=== PATIENT | female | born 1945 | race Two or more races ===

== ENCOUNTER 2022-05-11 02:08 | Emergency (ER) | payer OTHER ==
[~2022-05-11] VITALS: Ht 160 cm; Wt 66.0 kg
[2022-05-11] MEDS ORDERED: LIDOCAINE VISCOUS 2% 15ML UD MT ONE (02:45)
[2022-05-11] MEDS ORDERED: ONDANSETRON ODT 4 MG TAB PO ONE (02:45)
[2022-05-11] MEDS ORDERED: ALUM & MAG HYDROX-SIMETH LIQ(MAALOX) 30 ML PO ONE (02:45)
[2022-05-11] MEDS ORDERED: DONNATAL 5ml ORAL Elix (BELLADONNA ALK-PHENOBARB) PO ONE (02:45)
[2022-05-11 03:29] LABS: Eosinophils # (auto) 0.1 10 ^3/uL (0-0.8); Eosinophils % (auto) 0.5 % (0.0-7.0); Hemoglobin 11.7 g/dL (12.2-16.2); Monocytes # (auto) 0.9 10 ^3/uL (0-1.3); Monocytes % (auto) 7.8 % (0.0-12.0)
[2022-05-11 03:30] LABS: Basophils # (auto) 0 10 ^3/uL (0-0.2); Basophils % (auto) 0.4 % (0.0-2.0); Hematocrit 36.2 % (36.0-46.0); Lymphocytes % (auto) 8.3 % (10.0-50.0); Mean Corpuscular Hemoglobin 27.2 pg (28.0-32.0); Mean Corpuscular Hgb Conc. 32.4 g/dL (32.0-36.0); Mean Corpuscular Volume 83.9 fL (80.0-100.0); Neutrophils # (auto) 9.8 10 ^3/uL (1.6-8.6); Nucleated Red Blood Cells % 0.1 %; Red Blood Cells 4.31 10^6/uL (4.0-5.20); Red Cell Distribution Width 13.4 % (11.8-14.3); White Blood Cell 11.8 10^3/uL (4.4-10.8)
[2022-05-11 03:57] LABS: Albumin 3.8 g/dL (3.4-5.0); Calcium 9.2 mg/dL (8.5-10.1); Potassium 4.3 mmol/L (3.5-5.1)
[2022-05-11 04:00] LABS: BUN/Creatinine Ratio 25.7; Bilirubin, Total 0.2 mg/dL (0.2-1.0); Total Protein 7.8 g/dL (6.4-8.2)
[2022-05-11 07:23] VITALS: BP 152/75
[2022-05-11] MEDS ORDERED: PANT40TA2 PO (07:32)
[2022-05-11] MEDS ORDERED: CEPH-509 PO (07:33)
[2022-05-11] MEDS ORDERED: METR500T PO (07:34)
== END 2022-05-11 08:13 | disposition home or self-care (01) ==
LOC: ER 02:08
DX: K29.70 Gastritis, unspecified, without bleeding (principal); I10 Essential (primary) hypertension; E11.9 Type 2 diabetes mellitus without complications; J45.909 Unspecified asthma, uncomplicated; Z79.899 Other long term (current) drug therapy
CPT/HCPCS: 36415; 71046; 74176; 80053; 84484; 85025; 93005; 99285; Q0162

== ENCOUNTER 2022-10-06 12:00 | Emergency (ER) | payer OTHER ==
[~2022-10-06] VITALS: Ht 157.5 cm; Wt 62.0 kg
[~2022-10-06 12:00] MED LIST: CEPH-509 PO; METR500T PO; PANT40TA2 PO
[2022-10-06 17:16] VITALS: BP 164/72
== END 2022-10-06 17:18 | disposition home or self-care (01) ==
LOC: ER 12:00
DX: F07.81 Postconcussional syndrome (principal); J45.909 Unspecified asthma, uncomplicated; E11.9 Type 2 diabetes mellitus without complications; I10 Essential (primary) hypertension; Z98.890 Other specified postprocedural states; Z90.49 Acquired absence of other specified parts of digestive tract; W19.XXXA Unspecified fall, initial encounter; Y93.89 Activity, other specified; Y92.510 Bank as the place of occurrence of the external cause; Y99.8 Other external cause status
CPT/HCPCS: 70450; 72125

== ENCOUNTER 2023-08-15 19:10 | Emergency (ER) | payer OTHER, MEDICAID ==
[~2023-08-15] VITALS: Ht 154.9 cm; Wt 69.6 kg
[2023-08-15 20:19] LABS: Basophils # (auto) 0 10 ^3/uL (0-0.2); Basophils % (auto) 0.5 % (0.0-2.0); Eosinophils # (auto) 0.1 10 ^3/uL (0-0.8); Eosinophils % (auto) 1.1 % (0.0-7.0); Hemoglobin 12.8 g/dL (12.2-16.2); Lymphocytes # (auto) 1.4 10 ^3/uL (0.4-5.4); Lymphocytes % (auto) 16.7 % (10.0-50.0); Mean Corpuscular Hemoglobin 27.8 pg (28.0-32.0); Mean Corpuscular Hgb Conc. 31.9 g/dL (32.0-36.0); Mean Corpuscular Volume 87.4 fL (80.0-100.0); Monocytes % (auto) 12.2 % (0.0-12.0); Neutrophils # (auto) 5.7 10 ^3/uL (1.6-8.6); Neutrophils % (auto) 69.5 % (37.0-80.0); Nucleated Red Blood Cells % 0.1 %; Red Blood Cells 4.58 10^6/uL (4.0-5.20); Red Cell Distribution Width 13.6 % (11.8-14.3); White Blood Cell 8.2 10^3/uL (4.4-10.8)
[2023-08-15 20:44] LABS: Alanine Aminotransferase 19 U/L (7-40); Albumin 4.6 g/dL (3.2-4.8); Alkaline Phosphatase 57 U/L (46-116); Anion Gap 4 (5-15); Aspartate Aminotransferase 18 U/L (13-40); BUN/Creatinine Ratio 13.5 (10.0-20.0); Blood Urea Nitrogen 13 mg/dL (9-23); Calcium 10.1 mg/dL (8.7-10.4); Carbon Dioxide 32 mmol/L (20-30); Chloride 99 mmol/L (98-107); Glucose 218 mg/dL (74-106); Lipase 46 U/L (12-53); Potassium 4.4 mmol/L (3.5-5.1); Sodium 135 mmol/L (136-145)
[2023-08-15 20:45] LABS: Bilirubin, Total 0.3 mg/dL (0.2-1.0); Total Protein 7.8 g/dL (5.7-8.2)
[2023-08-15 21:25] LABS: Urine Bacteria NONE SEEN /hpf (None Seen); Urine Blood Negative /uL (Negative); Urine Clarity Clear (Clear); Urine Color Colorless (Yellow); Urine Protein, UAD Negative (Negative); Urine Specific Gravity 1.006 (1.001-1.035); Urine Urobilinogen Normal (Negative); Urine WBC <1 /hpf (0 - 5); Urine pH 5.5 (5.0-8.0)
[2023-08-15 21:27] VITALS: BP 159/69; PULSE 88; RESP 20; TEMP 98.3; O2SAT 96
== END 2023-08-15 21:53 | disposition home or self-care (01) ==
LOC: ER 19:10
DX: K80.20 Calculus of gallbladder without cholecystitis without obstruction (principal); J45.909 Unspecified asthma, uncomplicated; E11.9 Type 2 diabetes mellitus without complications; I10 Essential (primary) hypertension; E03.9 Hypothyroidism, unspecified; Z90.49 Acquired absence of other specified parts of digestive tract; Z90.710 Acquired absence of both cervix and uterus; Z79.899 Other long term (current) drug therapy
CPT/HCPCS: 36415; 76705; 80053; 81001; 83690; 85025; 93005

== ENCOUNTER 2023-10-26 14:43 | Inpatient (IN) | payer MEDICAID ==
[~2023-10-26] VITALS: Ht 154.9 cm; Wt 66.6 kg
[2023-10-26 15:18] LABS: Basophils # (auto) 0.1 10 ^3/uL (0-0.2); Basophils % (auto) 0.6 % (0.0-2.0); Eosinophils # (auto) 0.1 10 ^3/uL (0-0.8); Eosinophils % (auto) 0.8 % (0.0-7.0); Hematocrit 40.1 % (36.0-46.0); Hemoglobin 12.9 g/dL (12.2-16.2); Lymphocytes # (auto) 1.6 10 ^3/uL (0.4-5.4); Lymphocytes % (auto) 17.3 % (10.0-50.0); Mean Corpuscular Hemoglobin 28.1 pg (28.0-32.0); Mean Corpuscular Hgb Conc. 32.2 g/dL (32.0-36.0); Mean Corpuscular Volume 87.4 fL (80.0-100.0); Monocytes # (auto) 1.2 10 ^3/uL (0-1.3); Monocytes % (auto) 12.8 % (0.0-12.0); Neutrophils # (auto) 6.2 10 ^3/uL (1.6-8.6); Neutrophils % (auto) 68.5 % (37.0-80.0); Red Blood Cells 4.59 10^6/uL (4.0-5.20); Red Cell Distribution Width 13.2 % (11.8-14.3)
[2023-10-26] MEDS ORDERED: PANTOPRAZOLE 40 MG TAB PO ONE (15:30)
[2023-10-26] MEDS ORDERED: NITROGLYCERIN 0.4 MG SL TAB SL ONE (15:30)
[2023-10-26] MEDS ORDERED: MAALOX PLUS or MAALOX 30 ML PO ONE (15:30)
[2023-10-26 15:38] LABS: Alanine Aminotransferase 21 U/L (7-40); Albumin 4.6 g/dL (3.2-4.8); Alkaline Phosphatase 59 U/L (46-116); Anion Gap 6 (5-15); Aspartate Aminotransferase 19 U/L (13-40); Bilirubin, Total 0.2 mg/dL (0.2-1.0); Blood Urea Nitrogen 19 mg/dL (9-23); Carbon Dioxide 30 mmol/L (20-30); Chloride 103 mmol/L (98-107); Glucose 131 mg/dL (74-106); Potassium 4.4 mmol/L (3.5-5.1); Sodium 139 mmol/L (136-145)
[2023-10-26 15:39] LABS: Total Protein 7.4 g/dL (5.7-8.2)
[2023-10-26] MEDS ORDERED: ONDANSETRON HCL 4 MG/2 ML VIAL IV PRN (17:15)
[2023-10-26] MEDS ORDERED: NITROGLYCERIN 0.4 MG SL TAB SL PRN (17:15)
[2023-10-26] MEDS ORDERED: DOCUSATE SOD 100 MG CAP PO PRN (17:15)
[2023-10-26] MEDS ORDERED: ACETAMINOPHEN 325 MG TAB PO PRN (17:15)
[2023-10-26] MEDS ORDERED: MORPHINE SULFATE INJ 2 MG/ml SYRG IV PRN (17:15)
[2023-10-26] MEDS ORDERED: BACL5TAB2 PO (17:43)
[2023-10-26] MEDS ORDERED: OMEP1CAP70 PO (17:43)
[2023-10-26] MEDS ORDERED: SIMV5TAB14 PO (17:43)
[2023-10-26] MEDS ORDERED: GAB100C PO (17:43)
[2023-10-26] MEDS ORDERED: AMLO1TAB22 PO (17:43)
[2023-10-26] MEDS ORDERED: SODI650T PO (17:43)
[2023-10-26] MEDS ORDERED: ASPI1CHW5 PO (17:43)
[2023-10-26] MEDS ORDERED: LOSA50TA46 PO (17:43)
[2023-10-26] MEDS ORDERED: LEVO75TA6 PO (17:43)
[2023-10-26] MEDS ORDERED: MIRA50TA PO (17:43)
[2023-10-26] MEDS ORDERED: BACLOFEN 10 MG TAB PO PRN (17:45)
[2023-10-26] MEDS ORDERED: GABAPENTIN 100 MG CAP PO PRN (17:45)
[2023-10-26] MEDS ORDERED: IPRATROPIUM BROM 0.5 MG/2.5ML INH SOL NEB PRN (18:00)
[2023-10-26] MEDS ORDERED: DEXTROSE (50%) 50ML SYRG IV PRN (18:00)
[2023-10-26] MEDS ORDERED: ALBUTEROL SULF 2.5 MG/0.5ML(0.5%) NEB SOLN NEB PRN (18:00)
[2023-10-26 18:20] LABS: Urine Bacteria FEW /hpf (None Seen); Urine Blood Negative /uL (Negative); Urine Clarity Clear (Clear); Urine Color Colorless (Yellow); Urine Protein, UAD Negative (Negative); Urine Specific Gravity 1.008 (1.001-1.035); Urine Urobilinogen Normal (Negative); Urine WBC 2 /hpf (0 - 5); Urine pH 5.5 (5.0-8.0)
[2023-10-26 19:38] VITALS: BP 149/72; PULSE 79; RESP 16; TEMP 98.1; O2SAT 96
[2023-10-26] MEDS ORDERED: ATORVASTATIN 20 MG TAB PO SCH (22:00)
[2023-10-27] VITALS (9 sets, daily range): BP systolic 137–157; BP diastolic 59–70; PULSE 76–93; RESP 17–22; TEMP 98–98.9; O2SAT 94–99
[2023-10-27] MEDS: ACCU-CHEK COMFORT CURVE STRIP VI SCH ×4 (00:12→18:07)
[2023-10-27] MEDS: InsuLIN REG 1unit/0.01ml Soln (100units/ml) SC SCH ×4 (00:12→18:05)
[2023-10-27] MEDS: HYDROcodone-ACET 5/325MG TAB PO PRN ×2 (00:26→10:32)
[2023-10-27] MEDS ORDERED: ALBU2TAB11 IN (04:21)
[2023-10-27] MEDS ORDERED: PNEUMOCOCCAL VACC POLYS 25 MCG/0.5 ML VIAL IM ONE (05:15)
[2023-10-27 06:24] LABS: Basophils # (auto) 0.1 10 ^3/uL (0-0.2); Basophils % (auto) 0.8 % (0.0-2.0); Eosinophils # (auto) 0.1 10 ^3/uL (0-0.8); Eosinophils % (auto) 0.9 % (0.0-7.0); Hematocrit 40.2 % (36.0-46.0); Lymphocytes # (auto) 1.6 10 ^3/uL (0.4-5.4); Lymphocytes % (auto) 19.2 % (10.0-50.0); Mean Corpuscular Hemoglobin 28.1 pg (28.0-32.0); Mean Corpuscular Hgb Conc. 32.3 g/dL (32.0-36.0); Mean Corpuscular Volume 87.2 fL (80.0-100.0); Monocytes # (auto) 1.1 10 ^3/uL (0-1.3); Monocytes % (auto) 13.3 % (0.0-12.0); Neutrophils # (auto) 5.6 10 ^3/uL (1.6-8.6); Neutrophils % (auto) 65.8 % (37.0-80.0); Red Blood Cells 4.62 10^6/uL (4.0-5.20); Red Cell Distribution Width 13.1 % (11.8-14.3); White Blood Cell 8.6 10^3/uL (4.4-10.8)
[2023-10-27 06:40] LABS: Alanine Aminotransferase 19 U/L (7-40); Albumin 4.5 g/dL (3.2-4.8); Alkaline Phosphatase 57 U/L (46-116); Anion Gap 6 (5-15); Aspartate Aminotransferase 19 U/L (13-40); BUN/Creatinine Ratio 14.3 (10.0-20.0); Blood Urea Nitrogen 12 mg/dL (9-23); Carbon Dioxide 30 mmol/L (20-30); Chloride 102 mmol/L (98-107); Glucose 101 mg/dL (74-106); Potassium 4.5 mmol/L (3.5-5.1); Sodium 138 mmol/L (136-145)
[2023-10-27 06:41] LABS: Bilirubin, Total 0.4 mg/dL (0.2-1.0); Total Protein 7.6 g/dL (5.7-8.2)
[2023-10-27] MEDS ORDERED: LEVOTHYROXINE SODIUM 50 MCG TAB PO SCH (07:00)
[2023-10-27 09:26] LABS: INR 1.07 (0.9-1.15); Prothrombin Time 11.2 sec (9.3-11.8)
[2023-10-27] MEDS ORDERED: SODIUM BICARBONATE 650 MG TAB PO SCH (10:00)
[2023-10-27] MEDS ORDERED: MIRABEGRON BASE PO SCH (10:00)
[2023-10-27] MEDS ORDERED: ASPirin 81 mg TAB PO SCH (10:00)
[2023-10-27] MEDS ORDERED: PANTOPRAZOLE 40 MG TAB PO SCH (10:00)
[2023-10-27] MEDS ORDERED: amLODIPine BESYLATE 5 MG TAB PO SCH (10:00)
[2023-10-27] MEDS ORDERED: LOSARTAN POTASSIUM 50 MG TAB PO SCH (10:00)
[2023-10-27] MEDS ORDERED: SUCR1TAB PO (14:17)
[2023-10-27] MEDS ORDERED: PANT40T PO (14:17)
[2023-10-27] MEDS ORDERED: TRAM50TA2 PO (14:17)
[2023-10-27] MEDS ORDERED: ACET-1882 PO (14:17)
[2023-10-27] MEDS ORDERED: ERGO1CAP23 PO (14:17)
[2023-10-27] MEDS ORDERED: LIDO5DIS21 TOP (14:19)
[2023-10-27] MEDS ORDERED: cefTRIAXone 1GM/50ML D5W 50 ML IV ONE (14:30)
[2023-10-28] MEDS ORDERED: LEVOTHYROXINE SODIUM 25 MCG TAB PO SCH (07:00)
== END 2023-10-27 20:00 | disposition home or self-care (01) | DRG 206 ==
LOC: ER 14:43 → TELE 17:43 → TELE-EAST 10-27 03:45
PROVIDERS: ADMIT Internal Medicine; ATTEND Internal Medicine
PROC: 3E0234Z Introduction of Serum, Toxoid and Vaccine into Muscle, Percutaneous Approach (ICD-10-PCS; principal; 2023-10-26)
DX: M94.0 Chondrocostal junction syndrome [Tietze] (principal); J98.11 Atelectasis; N39.0 Urinary tract infection, site not specified; K21.9 Gastro-esophageal reflux disease without esophagitis; I10 Essential (primary) hypertension; E11.65 Type 2 diabetes mellitus with hyperglycemia; E78.5 Hyperlipidemia, unspecified; E03.9 Hypothyroidism, unspecified; J45.909 Unspecified asthma, uncomplicated; E55.9 Vitamin D deficiency, unspecified; M19.012 Primary osteoarthritis, left shoulder; M54.9 Dorsalgia, unspecified; Z90.710 Acquired absence of both cervix and uterus
CPT/HCPCS: 36415; 71045; 71250; 80053; 81001; 82306; 82607; 82962; 83036; 84443; 84484; 85025; 85610; 93005; G0378; J1815

== ENCOUNTER → 2023-12-07 | Outpatient (CLI) | payer MEDICAID ==
[~2023-12-07] MED LIST changes: +ACET-1882 PO; +ALBU2TAB11 IN; +ASPI1CHW5 PO; +BACL5TAB2 PO; -CEPH-509 PO; +ERGO1CAP23 PO; +GAB100C PO; +LEVO75TA6 PO; +LIDO5DIS21 TOP; +LOSA50TA46 PO; -METR500T PO; +MIRA50TA PO; +PANT40T PO; -PANT40TA2 PO; +SIMV5TAB14 PO; +SODI650T PO; +SUCR1TAB PO; +TRAM50TA2 PO
[2023-12-07 10:55] LABS: Urine Bacteria NONE SEEN /hpf (None Seen); Urine Blood Negative /uL (Negative); Urine Clarity Clear (Clear); Urine Color Yellow (Yellow); Urine Protein, UAD Negative (Negative); Urine Specific Gravity 1.018 (1.001-1.035); Urine Urobilinogen Normal (Negative); Urine WBC <1 /hpf (0 - 5)
== END | disposition home or self-care (01) ==
LOC: LAB 10:12
DX: N39.0 Urinary tract infection, site not specified (principal)
CPT/HCPCS: 81001; 87086

== ENCOUNTER → 2024-04-12 | Outpatient (CLI) | payer MEDICAID ==
[~2024-04-12] MED LIST changes: +ACET-1080 PO; +LOSA-534 PO; -LOSA50TA46 PO; +METH-1181 PO
[2024-04-12 09:32] LABS: Urine Bacteria None Seen /hpf (None Seen)
[2024-04-12 09:39] LABS: Basophils # (auto) 0.1 10 ^3/uL (0-0.2); Basophils % (auto) 1.3 % (0.0-2.0); Eosinophils # (auto) 0.2 10 ^3/uL (0-0.8); Eosinophils % (auto) 2.2 % (0.0-7.0); Hematocrit 40.5 % (36.0-46.0); Hemoglobin 13.2 g/dL (12.2-16.2); Lymphocytes # (auto) 1.8 10 ^3/uL (0.4-5.4); Lymphocytes % (auto) 25.8 % (10.0-50.0); Mean Corpuscular Hgb Conc. 32.5 g/dL (32.0-36.0); Mean Corpuscular Volume 86.2 fL (80.0-100.0); Monocytes # (auto) 0.8 10 ^3/uL (0-1.3); Monocytes % (auto) 11.6 % (0.0-12.0); Neutrophils # (auto) 4.1 10 ^3/uL (1.6-8.6); Neutrophils % (auto) 59.1 % (37.0-80.0); Nucleated Red Blood Cells % 0.1 %; Red Cell Distribution Width 13.4 % (11.8-14.3); White Blood Cell 6.9 10^3/uL (4.4-10.8)
[2024-04-12 09:40] LABS: Urine Blood Negative /uL (Negative); Urine Budding Yeast OCCASIONAL /hpf (None Seen); Urine Clarity Clear (Clear); Urine Color Colorless (Yellow); Urine Protein, UAD Negative (Negative); Urine Specific Gravity 1.005 (1.001-1.035); Urine Urobilinogen Normal (Negative); Urine WBC <1 /hpf (0 - 5); Urine pH 6.5 (5.0-9.0)
[2024-04-12 10:32] LABS: Alanine Aminotransferase 13 U/L (7-40); Albumin 4.6 g/dL (3.2-4.8); Alkaline Phosphatase 65 U/L (46-116); Anion Gap 5 (5-15); Aspartate Aminotransferase 11 U/L (13-40); BUN/Creatinine Ratio 27.2 (10.0-20.0); Bilirubin, Total 0.3 mg/dL (0.2-1.0); Blood Urea Nitrogen 22 mg/dL (9-23); Calcium 10.2 mg/dL (8.5-10.1); Carbon Dioxide 28 mmol/L (20-30); Chloride 103 mmol/L (98-107); Cholesterol 171 mg/dL (< 200); Glucose 110 mg/dL (74-106); HDL Cholesterol 80 mg/dL (40-59); LDL Cholesterol 86 mg/dL (< 100); Potassium 4.4 mmol/L (3.5-5.1); Sodium 136 mmol/L (136-145); Total Protein 7.7 g/dL (5.7-8.2); Triglycerides 63 mg/dL (< 150)
[2024-04-12 10:40] LABS: % Iron Saturation 29.2 % (15-50)
[2024-04-12 11:45] LABS: Ferritin 17.7 ng/mL (10-291)
[2024-04-12 11:46] LABS: Free T4 (Free Thyroxine) 1.47 ng/dL (0.89-1.76)
[2024-04-12 12:00] LABS: Folate (Folic Acid) 24.26 ng/mL (>5.38)
== END | disposition home or self-care (01) ==
LOC: LAB 08:59
DX: G61.81 Chronic inflammatory demyelinating polyneuritis (principal); E11.40 Type 2 diabetes mellitus with diabetic neuropathy, unspecified; E78.5 Hyperlipidemia, unspecified; E55.9 Vitamin D deficiency, unspecified; E03.9 Hypothyroidism, unspecified
CPT/HCPCS: 36415; 80053; 80061; 81001; 82607; 82728; 82746; 83036; 83540; 83550; 84155; 84165; 84439; 84443; 85025

== ENCOUNTER → 2024-04-18 | Outpatient (CLI) | payer MEDICAID | END | disposition home or self-care (01) | LOC: LAB 12:03 | DX: I10 Essential (primary) hypertension (principal); E11.40 Type 2 diabetes mellitus with diabetic neuropathy, unspecified; E78.5 Hyperlipidemia, unspecified; E55.9 Vitamin D deficiency, unspecified; E03.9 Hypothyroidism, unspecified | CPT/HCPCS: 82274 ==

== ENCOUNTER → 2024-07-04 | Outpatient (CLI) | payer MEDICAID ==
[2024-07-04 09:20] LABS: Urine Bacteria None Seen /hpf (None Seen)
[2024-07-04 09:32] LABS: Basophils # (auto) 0.1 10 ^3/uL (0-0.2); Basophils % (auto) 0.9 % (0.0-2.0); Eosinophils # (auto) 0.1 10 ^3/uL (0-0.8); Eosinophils % (auto) 0.8 % (0.0-7.0); Hematocrit 40.5 % (36.0-46.0); Hemoglobin 13.5 g/dL (12.2-16.2); Lymphocytes # (auto) 1.4 10 ^3/uL (0.4-5.4); Mean Corpuscular Hemoglobin 29.2 pg (28.0-32.0); Mean Corpuscular Hgb Conc. 33.4 g/dL (32.0-36.0); Mean Corpuscular Volume 87.2 fL (80.0-100.0); Monocytes # (auto) 0.8 10 ^3/uL (0-1.3); Monocytes % (auto) 9.5 % (0.0-12.0); Neutrophils # (auto) 5.7 10 ^3/uL (1.6-8.6); Neutrophils % (auto) 71.8 % (37.0-80.0); Platelet Count (auto) 266 10^3/uL (140-450); Red Blood Cells 4.64 10^6/uL (4.0-5.20); Red Cell Distribution Width 13.4 % (11.8-14.3)
[2024-07-04 09:49] LABS: Urine Blood Negative /uL (Negative); Urine Clarity Clear (Clear); Urine Color Light-Yellow (Yellow); Urine Protein, UAD Negative (Negative); Urine Specific Gravity 1.012 (1.001-1.035); Urine Urobilinogen Normal (Negative); Urine WBC 1 /hpf (0 - 5); Urine pH 6.5 (5.0-9.0)
[2024-07-04 10:40] LABS: Alanine Aminotransferase 17 U/L (7-40); Albumin 4.8 g/dL (3.2-4.8); Alkaline Phosphatase 66 U/L (46-116); Anion Gap 5 (5-15); Aspartate Aminotransferase 13 U/L (13-40); BUN/Creatinine Ratio 15.4 (10.0-20.0); Bilirubin, Total 0.4 mg/dL (0.2-1.0); Blood Urea Nitrogen 14 mg/dL (9-23); Calcium 10.4 mg/dL (8.7-10.4); Carbon Dioxide 28 mmol/L (20-30); Chloride 105 mmol/L (98-107); Glucose 165 mg/dL (74-106); Potassium 5.2 mmol/L (3.5-5.1); Sodium 138 mmol/L (136-145); Total Protein 7.9 g/dL (5.7-8.2)
[2024-07-04 13:05] LABS: Triglycerides 99 mg/dL (< 150)
[2024-07-04 13:06] LABS: Cholesterol 165 mg/dL (< 200); LDL Cholesterol 75 mg/dL (< 100)
[2024-07-04 13:07] LABS: HDL Cholesterol 73 mg/dL (40-59)
[2024-07-04 13:08] LABS: Creatinine, Urine 55.56 mg/dL (30.0-125.0)
[2024-07-04 13:11] LABS: Micro Albumin < 3.0 mg/L (<30.0)
[2024-07-04 13:14] LABS: Microalb/Creat Ratio, Urine < 5.00
== END | disposition home or self-care (01) ==
LOC: LAB 09:06
DX: I10 Essential (primary) hypertension (principal); E11.42 Type 2 diabetes mellitus with diabetic polyneuropathy; E78.5 Hyperlipidemia, unspecified; E03.9 Hypothyroidism, unspecified; N39.0 Urinary tract infection, site not specified
CPT/HCPCS: 36415; 80053; 80061; 81001; 82043; 82306; 82570; 83036; 84439; 84443; 85025; 87086

== ENCOUNTER → 2024-08-28 | Outpatient (CLI) | payer MEDICAID ==
[2024-08-28] MEDS: REGADENOSON 0.4 MG/5 ML SYRG IV ONE ×2 (10:30→11:37)
--- NOTE | 2024-08-28 15:41 | DVHSR ---
APPROVED REPORT Exam: Nuclear Stress Test Indication: CARDIAC CLEARANCE Stress Tech: Ramandeep Segundo Ht: 5 ft 1 in Wt: 148 lbs BSA: 1.66 m2 BMI: 27.96 Medical History Medical History: Diabetes, HTN, Hyperlipidemia, SOB, ATYPICAL CHEST PAIN, HYPOTHYROIDISM Allergies: No known drug allergies Stress Test Details Stress Test: Pharmacologic stress testing performed using 0.4 mg of regadenoson per 5 mL given IV ov er 10 seconds. Reason for pharmacologic stress test: CARDIAC CLEARANCE. HR Resting HR: 78 bpmMax Heart Rate (APMHR): 142.304489 bpm Max HR Achieved: 106 bpmTarget HR (85% APMHR): 120.087044 bpm % of APMHR: 74.65 Recovery HR: 89 bpm BP Resting BP: 147/69 mmHg Recovery BP: 146/78 mmHg ECG Resting ECG: Sinus Rhythm Clinical Reason for Termination: Completed protocol Nurse Comments Received patient from Nuclear Medicine. Patient is A&O x4 and on RA. FOR VS please refer back to st ress test assessment documentation. Patient is connected to sealing machine operator. See cardio-neuro proce dural notes for addtional details. PIV flushes well. Reviewed POC and patient verbalizes understand ing and consents to test. Lexiscan stress test performed per protocol. thermoplastic technician administered the Cardiolite. Pat ient tolerated well and vitals returned to baseline. Transferred to Nuclear Medicine via wheelchair with tech in stable condition. Stress ECG Conclusion Resting ECG showed normal sinus rhythm. At peak stress level no dynamic EKG changes was noted to sug gest ischemia. Resting images shows near homogeneous uptake of radioactive tracer throughout the myocardium without evidence of myocardial infarction. Stress images shows near homogeneous uptake of radioactive tracer throughout the myocardium without e vidence of myocardial ischemia. Well-preserved ventricular systolic function at 72%. Impression: Negative stress test for ischemia, low risk study. NM EXAM: Myocardial Perfusion REST/STRESS Imaging Protocol: Rest Tc-99m/Stress Tc-99m 1 day Resting Data Rest SPECT myocardial perfusion imaging was performed in supine position minutes following the intra venous injection of 11.4 mCi of Tc-99m Sestamibi. Time of rest injection: 1000 Time of rest imagin Administration Route: IV Administration Site: Left AC Pharmacologic Stress Pharmacologic stress test was performed by injecting Regadenoson 0.4 mg IV push followed by the intra venous injection of 27 mCi of Tc-99m Sestamibi. Time of stress injection: 1130 Time of stress imagin Administration Route: IV Administration Site: Left AC Gated Stress SPECT was performed 60 minutes after stress injection. The images were gated to evaluate regional wall motion and calculate left ventricular ejection fracti on. Stress only was performed in the Supine position. Nuclear Conclusion ECG Findings: negative for ischemia Clinical Findings: negative for ischemia Nuclear Findings: negative for ischemia Exercise Capacity: not assessed Left Ventricular Function: normal Risk Study: low Resting ECG showed normal sinus rhythm. At peak stress level no dynamic EKG changes was noted to sug gest ischemia. Resting images shows near homogeneous uptake of radioactive tracer throughout the myocardium without evidence of myocardial infarction. Stress images shows near homogeneous uptake of radioactive tracer throughout the myocardium without e vidence of myocardial ischemia. Well-preserved ventricular systolic function at 72%. Impression: Negative stress test for ischemia, low risk study.
== END | disposition home or self-care (01) ==
LOC: XYW 09:56
PROVIDERS: ATTEND Internal Medicine
DX: Z01.810 Encounter for preprocedural cardiovascular examination (principal); E11.9 Type 2 diabetes mellitus without complications; I10 Essential (primary) hypertension; E03.9 Hypothyroidism, unspecified; E78.5 Hyperlipidemia, unspecified
CPT/HCPCS: 78452; A9500; J2785; 93017

== ENCOUNTER → 2024-09-21 | Outpatient (CLI) | payer MEDICAID ==
[2024-09-21 10:30] LABS: Basophils # (auto) 0.1 10 ^3/uL (0-0.2); Basophils % (auto) 1.2 % (0.0-2.0); Eosinophils # (auto) 0.1 10 ^3/uL (0-0.8); Eosinophils % (auto) 1.4 % (0.0-7.0); Hematocrit 36.3 % (36.0-46.0); Hemoglobin 11.8 g/dL (12.2-16.2); Lymphocytes # (auto) 1.5 10 ^3/uL (0.4-5.4); Lymphocytes % (auto) 26.5 % (10.0-50.0); Mean Corpuscular Hemoglobin 28.3 pg (28.0-32.0); Mean Corpuscular Hgb Conc. 32.5 g/dL (32.0-36.0); Mean Corpuscular Volume 86.8 fL (80.0-100.0); Monocytes # (auto) 0.7 10 ^3/uL (0-1.3); Monocytes % (auto) 12.1 % (0.0-12.0); Neutrophils # (auto) 3.3 10 ^3/uL (1.6-8.6); Neutrophils % (auto) 58.8 % (37.0-80.0); Platelet Count (auto) 252 10^3/uL (140-450); Red Blood Cells 4.18 10^6/uL (4.0-5.20); Red Cell Distribution Width 13.3 % (11.8-14.3); White Blood Cell 5.6 10^3/uL (4.4-10.8)
[2024-09-21 10:35] LABS: Urine Bacteria None Seen /hpf (None Seen)
[2024-09-21 11:02] LABS: Urine Blood Negative /uL (Negative); Urine Clarity Clear (Clear); Urine Color Light-Yellow (Yellow); Urine Protein, UAD Negative (Negative); Urine Specific Gravity 1.014 (1.001-1.035); Urine Urobilinogen Normal (Negative); Urine WBC 1 /hpf (0 - 5); Urine pH 5.5 (5.0-9.0)
[2024-09-21 11:04] LABS: Alanine Aminotransferase 16 U/L (7-40); Albumin 4.2 g/dL (3.2-4.8); Alkaline Phosphatase 56 U/L (46-116); Anion Gap 6 (5-15); BUN/Creatinine Ratio 20.7 (10.0-20.0); Bilirubin, Total 0.3 mg/dL (0.2-1.0); Blood Urea Nitrogen 18 mg/dL (9-23); Calcium 10.1 mg/dL (8.7-10.4); Carbon Dioxide 28 mmol/L (20-31); Chloride 106 mmol/L (98-107); Potassium 4.7 mmol/L (3.5-5.1); Sodium 140 mmol/L (136-145)
[2024-09-21 11:11] LABS: Aspartate Aminotransferase 10 U/L (13-40); Glucose 127 mg/dL (74-106)
== END | disposition home or self-care (01) ==
LOC: LAB 09:58
DX: I10 Essential (primary) hypertension (principal); E03.9 Hypothyroidism, unspecified; E78.5 Hyperlipidemia, unspecified
CPT/HCPCS: 36415; 80053; 81001; 82306; 83036; 84439; 84443; 85025

== ENCOUNTER → 2025-01-22 | Outpatient (CLI) | payer MEDICAID ==
[~2025-01-22] MED LIST changes: +ALBUTEROL SULF 2.5 MG/0.5ML(0.5%) NEB SOLN ONE
== END | disposition home or self-care (01) ==
LOC: RT 14:16
PROVIDERS: ATTEND Internal Medicine Pulmonary Disease
DX: J44.9 Chronic obstructive pulmonary disease, unspecified (principal); R06.00 Dyspnea, unspecified
CPT/HCPCS: 94060; 94727; 94729

== ENCOUNTER 2025-03-12 17:48 | Emergency (ER) | payer MEDICAID ==
[~2025-03-12] VITALS: Ht 154.9 cm; Wt 65.0 kg
[~2025-03-12 17:48] MED LIST changes: -ALBUTEROL SULF 2.5 MG/0.5ML(0.5%) NEB SOLN ONE
--- NOTE | 2025-03-12 18:21 | ED.PDOC ---
Jayshree. trauma (HPI) HPI Comments Vitals: temperature of 98.0F, pulse of 89, respiratory rate of 16, blood pressure of 170/73, SpO2 of 97%RA Past medical history: asthma, chronic neck pain, DM, HLD, HTN, and thyroid di sease. Hypotension Past surgical history: appendectomy, , hysterectomy JOINER: HPI: Poor Historian. 79-YEAR-OLD FEMALE PRESENTS TO EMERGENCY DEPARTMENT WITH HER DAUGHTER STATUS POST MECHANICAL FALL from a standing position while she was gardening today. Patient typically ambulates with a walker but she was not using her walker when she fell. Denies any other acute symptoms. Patient states that she had a transient small loss of consciousness. REVIEW OF SYSTEMS: CONSTITUTIONAL: Denies acute: fever, diaphoresis, chills, generalized weakness. HEAD: Denies acute: , photophobia Eyes: Denies acute: Double vision, vision loss, eye pain, eye discharge. EARS: Denies acute: tinnitus, hearing loss, ear discharge, ear pain, THROAT: Denies acute: sore throat, swelling, difficulty swallowing , pain with swallowing, change in voice. NECK: Denies acute: neck pain, neck swelling, stiff neck. HEART: Denies acute : chest pain, palpitations, LUNGS: Denies acute: SOB, wheezing, cough, hemoptysis ABDOMEN: Denies acute: abdominal pain, Vomiting, diarrhea, melena , hematemesis, hematochezia SKIN: Denies acute: rash, redness, lesions, itchiness. EXTREMITIES: Denies acute: calf pain, numbness, tingling, weakness, denies pain in extremity. Denies acute: Low back pain. Neuro: Denies acute: focal neurological deficit, motor or sensory focal neurological deficit, tremors, seizure like activity, confusion, dizziness, change in mental status, loss of bowel or bladder function, cauda equina like symptoms. : Denies acute: dysuria, hematuria, flank pain, increase in urinary frequency. PSYCH: Denies acute: hallucination, suicidal ideation, homicidal ideation. FEMALE: Denies acute: abnormal vaginal bleeding, foul odor, unusual discharge. PHYSICAL EXAM: General: ----mild----acute distress, awake and alert. Head: normocephalic, atraumatic. Noted minimal skin abrasion at the occipital no laceration, no hematoma, no swelling Neck: supple, trachea is midline, no swelling. Cervical spine: Palpation of the posterior midline of the cervical spine reveals no focal swelling, erythema, focal tenderness to palpation. Patient has normal range of motion. Throat: Normal phonation. Eyes:, no erythema, no purulent discharge, no proptosis, no icterus. Heart: regular rate, regular rhythm, no significant murmur appreciated. Lungs: no apparent respiratory distress, Able to speak in full sentences. No wheezing, no rhonchi, no crackles. No stridors Clear to auscultation bilaterally. Abdomen: non tender to palpation, non distended, soft, no guarding, no rebound, + bowel sounds. Neuro: Awake, Alert, oriented to name, self, situation, follows commands GCS=15. Speech is normal. Skin: no petechia, no purpura, no cyanosis, non-pale, not jaundice. Lower extremities: --no - Pitting edema no deformity, no focal swelling, no calf TTP. Makes eye contact. moves all four extremities. Patient was able to stand and flex hip and knee and stand on one leg without any difficulty. Face: no apparent facial droop. No nuchal rigidity, Kernig's sign, Brudzinski's sign, no meningeal signs. ED COURSE: Chief Complaint: Fall Injury Time Seen by MD: 18:00 Primary Care Provider: Herbert Garcia notes: Nurses Notes, Allergies Allergies: Coded Allergies: NO KNOWN ALLERGIES (Unverified , 05/11/22) Home Meds Active Scripts Methocarbamol (Methocarbamol) 500 Mg Tab, 500 MG PO BID, #20 TAB Prov:CLIFTON SMITH 01/28/24 Acetaminophen (Tylenol 8 Hour Arthritis) 650 Mg Tab, 650 MG PO TID, #30 TAB Prov:CLIFTON SMITH 24 Lidocaine (LIDODERM 5% TOPICAL PATCH) 1 Patch Ph, 1 PATCH TOP DAILY, #30 PATCH 1 Refill Prov:SHARON LENNON 10/27/23 Ergocalciferol (VITAMIN D 54277 UNIT) 50,000 [place], [address] UNIT PO every week for 30 Days, #5 CAP Prov:SHARON LENNON RESIDENT 10/27/23 Tramadol Hcl (Tramadol Hcl) 50 Mg Tab, 50 MG PO TID for 7 Days, #21 TAB Prov:SHARON LENNON RESIDENT 10/27/23 Sucralfate (Sucralfate) 1 Gm Tab, 1 GM PO QID for 30 Days, #120 TAB Prov:SHARON LENNON 10/27/23 Pantoprazole Sodium Sesquihydr (Pantoprazole Sodium) 40 Mg Tab, 40 MG PO BID for 30 Days, #60 TAB Prov:SHARON LENNON 10/27/23 Acetaminophen (Acetaminophen) 325 Mg Tab, 650 MG PO Q6HP PRN for 30 Days, #240 TAB Prov:SHARON LENNON RESIDENT 10/27/23 Reported Medications Albuterol Sulfate (Albuterol Sulfate) 2 Mg Tab, 90 MCG IN Q6HP PRN for SHORTNESS OF BREATH, MG 10/27/23 Baclofen (Baclofen) 5 Mg Tab, 1 TAB PO BIDPRN PRN 10/26/23 Sodium Bicarbonate (Sodium Bicarbonate) 650 Mg Tab, 1 TAB PO DAILY 10/26/23 Mirabegron Base (MYRBETRIQ) 50 Mg Tab, 1 TAB PO DAILY 10/26/23 Gabapentin (Gabapentin) 100 Mg Cap, 1 CAP PO QHSP PRN 10/26/23 Aspirin (Chewable Aspirin) 81 Mg Chw, 1 TAB PO DAILY 10/26/23 Losartan Potassium (Losartan Potassium) 50 Mg Tab, 1 TAB PO DAILY 10/26/23 Levothyroxine Sodium (Levothyroxine Sodium) 75 Mcg Tab, 1 TAB PO QAM 10/26/23 Simvastatin (Simvastatin) 5 Mg Tab, 1 TAB PO 10/26/23 Information Source: Patient, Relative Mode of Arrival: Wheelchair Past Medical History PAST MEDICAL HISTORY: Asthma, DM, High Lipids, HTN, Thyroid Surgical History: Appendectomy, , Hysterectomy ROVING DEPARTMENT SUPERVISOR History: No Pertinent ROVING DEPARTMENT SUPERVISOR History Family History Family History: Reviewed,noncontributory to illness Social History Smoker: Non-Smoker Alcohol: Denies ETOH Use Drugs: Denies Drug Use Lives In: Home Was a procedure done? Was a procedure done?: No Differential Diagnosis Multiple Trauma: Closed Head Injury, Cardiac Injury, Fractures, Intraabdominal Injury, Pneumothorax, Cerebral Contusion, Pulmonary Contusion, Spine Injury, Tracheal Injury, Urological Injury, Vascular Injury, Abrasions, Contusion, Foreign Body, Hematoma, Laceration, Encephalopathy Neck Injury: Cervical Muscle Spasm, Cervical Sprain, Cervical Strain, Cervical Fracture, Spinal Cord Injury X-Ray, Labs, Meds, VS Vital Signs Date Time Temp Pulse Resp B/P (MAP) Pulse Ox O2 Delivery O2 Flow Rate FiO2 03/12/25 22:01 91 20 130/72 (91) 95 03/12/25 21:58 91 20 98 Room Air* 0 21 03/12/25 20:00 99.0 84 16 135/69 (91) 98 99.0 03/12/25 17:59 98.0 89 16 170/73 (105) 97 98.0 Lab Test 03/12/25 19:40 03/12/25 19:00 03/12/25 18:42 Range/Units Troponin I High Sensitivity 22 22 </=34 ng/L Urine Color Colorless Yellow Urine Clarity Clear Clear Urine pH 5.5 5.0-9.0 Urine Specific [place] 1.003 1.001-1.035 Urine Protein Negative Negative Urine Ketones Negative Negative Urine Blood Negative Negative /uL Urine Nitrite Negative Negative Urine Bilirubin Negative Negative Urine Urobilinogen Normal Negative mg/dL Urine Leukocyte Esterase Negative Negative /uL Urine RBC 1 0 - 4 /hpf Urine Microscopic WBC < 1 0-5 /HPF Urine Squamous Epithelial Cells Few <5 /hpf Urine Bacteria Few H None Seen /hpf Urine Glucose Normal Normal mg/dL White Blood Count 6.3 4.4-10.8 10^3/uL Red Blood Count 4.56 4.0-5.20 10^6/uL Hemoglobin 12.8 12.2-16.2 g/dL Hematocrit 38.8 36.0-46.0 % Mean Corpuscular Volume 85.2 80.0-100.0 fL Mean Corpuscular Hemoglobin 28.0 28.0-32.0 pg Mean Corpuscular Hemoglobin Concent 32.9 32.0-36.0 g/dL Red Cell Distribution Width 13.3 11.8-14.3 % Platelet Count 267 140-450 10^3/uL Mean Platelet Volume 8.0 6.9-10.8 fL Neutrophils (%) (Auto) 63.6 37.0-80.0 % Lymphocytes (%) (Auto) 21.1 10.0-50.0 % Monocytes (%) (Auto) 13.1 H 0.0-12.0 % Eosinophils (%) (Auto) 1.5 0.0-7.0 % Basophils (%) (Auto) 0.7 0.0-2.0 % Neutrophils # (Auto) 4.0 1.6-8.6 10 ^3/uL Lymphocytes # (Auto) 1.3 0.4-5.4 10 ^3/uL Monocytes # (Auto) 0.8 0-1.3 10 ^3/uL Eosinophils # (Auto) 0.1 0-0.8 10 ^3/uL Basophils # (Auto) 0 0-0.2 10 ^3/uL Nucleated Red Blood Cells 0.1 % Sodium Level 139 136-145 mmol/L Potassium Level 4.6 3.5-5.1 mmol/L Chloride Level 104 98-107 mmol/L Carbon Dioxide Level 27 20-31 mmol/L Anion Gap 8 5-15 Blood Urea Nitrogen 18 9-23 mg/dL Creatinine 0.85 0.550-1.02 mg/dL Glomerular Filtration Rate Calc 70 >90 mL/min BUN/Creatinine Ratio 21.2 H 10.0-20.0 Serum Glucose 119 H 74-106 mg/dL Calcium Level 10.5 H 8.7-10.4 mg/dL Total Bilirubin 0.3 0.2-1.0 mg/dL Aspartate Amino Transferase (AST) 18 13-40 U/L Alanine Aminotransferase (ALT) 21 7-40 U/L Alkaline Phosphatase 66 46-116 U/L Total Protein 7.4 5.7-8.2 g/dL Albumin 4.7 3.2-4.8 g/dL [place] [id number] Ph: [phone] DIAGNOSTIC IMAGING Diagnostic Imaging Report : [id number] Signed PATIENT: GISSEL JOINER ACCT: [id number] UNIT: [id number] : 1945 LOC: ER ROOM / BED: / AGE / SEX: 79 / F ADM STATUS: REG ER SERVICE [id number] ORDERING PHYSICIAN: DALTON CAZARES DO PROCEDURE(s): HWOCT - HEAD WITHOUT CONTRAST REASON: fall, loc ORDER NUMBER(s): [id number], ACCESSION NUMBER(s): [id number] Procedure: CT HEAD WITHOUT CONTRAST Study Date and Requested Time: 03/12/2025 06:12 PM History: fall, loc Comparison: HEAD WITHOUT CONTRAST on DOS: 10/06/22 Dose: CTDI: 50.12 mGy DLP: 803.61 mGycm Technique: Multiplanar images obtained through the brain without intravenous contrast. Findings: Mild diffuse brain atrophy. Mild chronic small vessel ischemic changes. Bilateral basal ganglia physiologic calcification. No hemorrhages, masses, mass effect, midline shift, herniation or cytotoxic edema following a large vascular territory. No intra-axial or extra-axial fluid collections. No evidence of hydrocephalus. The basal cisterns are patent. The pituitary gland, sella and parasellar regions are unremarkable. The cerebellar tonsils are in normal position. The cerebellum is unremarkable. There is bilateral lens replacement. Otherwise, orbits and globes are unremarkable. Mucoperiosteal thickening of left posterior ethmoid air cells. Otherwise, the paranasal sinuses and mastoids are clear. There are no worrisome calvarial lesions. Impression: No evidence of acute intracranial abnormality. ATED BY: NILDA PAIGE DO DICTATED DATE/TIME: 03/12/251836 SIGNED BY: NILDA PAIGE DO SIGNED DATE/TIME: 03/12/251836 CC: Time of 1ST Reevaluation: 18:00 Reevaluation 1ST: Unchanged Patient Education/Counseling: Diagnosis, Treatment Family Education/Counseling: Diagnosis, Treatment Comments Patient presented with the above HPI.--fall and closed head injury----workup was initiated. patient was found with the above mentioned diagnosis. the following medications were ordered: please refer to order lists of meds and tests obtained by myself Dr. Cazares. Patient ED course and VS have been stabilized. Patient has been reassessed in the ED and remained in a stable condition. Pertinent incidental findings were discussed with the patient and/or family. Patient/family voices understanding and is agreeable with plan. Patient has been observed in the ED adequate length of time to insure improvement/stability. Escalation of care considered: Consideration of escalation to observation or admission Patient was DISCHARGED home in a stable condition. All the reports of any imaging studies that were ordered by myself were reviewed by myself. Departure 1 Departure Time of Disposition: 21:48 Impression: Primary Impression: Closed head injury Additional Impression: Concussion Disposition: 01 HOME / SELF CARE / HOMELESS Condition: Stable Additional Instructions: ADDITIONAL INSTRUCTIONS: YOU MUST FOLLOW-UP WITH YOUR PRIMARY CARE/FAMILY DOCTOR IN 1 TO 2 DAYS. IF YOU ARE UNABLE TO SEE YOUR PRIMARY CARE/FAMILY DOCTOR, PLEASE RETURN TO OUR EMERGENCY ROOM FOR RE-ASSESSMENT AND RE-EVALUATION IN 1 TO 2 DAYS. RETURN TO THE EMERGENCY ROOM HERE IN OUR FACILITY OR TO THE NEAREST ER GINETTE IF YOUR SYMPTOMS CHANGE OR WORSEN. CONSULTATIONS: YOU MUST FOLLOW-UP FOR CONSULTATION SOON POSSIBLE WITH: -CARDIOLOGY AND NEUROLOGY IN 1-2 DAYS. PLEASE CALL FOR APPOINTMENT YOU MUST CALL THE CONSULTANTS OFFICE YOURSELF TO MAKE AN APPOINTMENT. YOU MAY NEED TO ARRANGE THAT THROUGH YOUR INSURANCE AND/OR YOUR PRIMARY/FAMILY DOCTOR. IF YOU ARE UNABLE TO SEE THE TOOL ENGINE LATHE SET UP OPERATOR IN 1 TO 2 DAYS, YOU MUST RETURN TO OUR EMERGENCY ROOM (OR ANY OTHER ER OF YOUR CHOICE) FOR RE-ASSESSMENT AND RE- EVALUATION. ADEQUATE FLUID HYDRATION. FALL PRECAUTIONS. AMBULATE WITH THE ASSISTANCE AT ALL TIMES. Discharged With: Self, Relative Critical Care Note Critical Care Time?: No Stability Stability form required: No I personally scribed for DALTON CAZARES DO ([email or web address]) on 03/12/25 at 18:21. Electronically submitted by Marcus Garland ([email or web address]). I personally scribed for DALTON CAZARES DO ([email or web address]) on 03/12/25 at 18:37. Electronically submitted by Marcus Garland ([email or web address]). I personally scribed for DALTON CAZARES DO ([email or web address]) on 03/12/25 at 19:22. Electronically submitted by Marcus Garland ([email or web address]). DALTON CAZARES DO March 12, 2025 18:21
--- NOTE | 2025-03-12 18:40 | DVH ---
Procedure: CT HEAD WITHOUT CONTRAST Study Date and Requested Time: 03/12/2025 06:12 PM History: fall, loc Comparison: HEAD WITHOUT CONTRAST on DOS: 10/06/22 Dose: CTDI: 50.12 mGy DLP: 803.61 mGycm Technique: Multiplanar images obtained through the brain without intravenous contrast. Findings: Mild diffuse brain atrophy. Mild chronic small vessel ischemic changes. Bilateral basal ganglia physi ologic calcification. No hemorrhages, masses, mass effect, midline shift, herniation or cytotoxic edema following a large v ascular territory. No intra-axial or extra-axial fluid collections. No evidence of hydrocephalus. The basal cisterns are patent. The pituitary gland, sella and parasellar regions are unremarkable. The cerebellar tonsils are in nor mal position. The cerebellum is unremarkable. There is bilateral lens replacement. Otherwise, orbits and globes are unremarkable. Mucoperiosteal t hickening of left posterior ethmoid air cells. Otherwise, the paranasal sinuses and mastoids are christy ar. There are no worrisome calvarial lesions. Impression: No evidence of acute intracranial abnormality.
[2025-03-12 18:59] LABS: Basophils # (auto) 0 10 ^3/uL (0-0.2); Basophils % (auto) 0.7 % (0.0-2.0); Eosinophils # (auto) 0.1 10 ^3/uL (0-0.8); Eosinophils % (auto) 1.5 % (0.0-7.0); Hematocrit 38.8 % (36.0-46.0); Hemoglobin 12.8 g/dL (12.2-16.2); Lymphocytes # (auto) 1.3 10 ^3/uL (0.4-5.4); Lymphocytes % (auto) 21.1 % (10.0-50.0); Mean Corpuscular Hgb Conc. 32.9 g/dL (32.0-36.0); Mean Corpuscular Volume 85.2 fL (80.0-100.0); Monocytes # (auto) 0.8 10 ^3/uL (0-1.3); Monocytes % (auto) 13.1 % (0.0-12.0); Neutrophils % (auto) 63.6 % (37.0-80.0); Nucleated Red Blood Cells % 0.1 %; Platelet Count (auto) 267 10^3/uL (140-450); Red Blood Cells 4.56 10^6/uL (4.0-5.20); Red Cell Distribution Width 13.3 % (11.8-14.3); White Blood Cell 6.3 10^3/uL (4.4-10.8)
[2025-03-12 19:15] LABS: Alanine Aminotransferase 21 U/L (7-40); Albumin 4.7 g/dL (3.2-4.8); Alkaline Phosphatase 66 U/L (46-116); Anion Gap 8 (5-15); Aspartate Aminotransferase 18 U/L (13-40); BUN/Creatinine Ratio 21.2 (10.0-20.0); Bilirubin, Total 0.3 mg/dL (0.2-1.0); Blood Urea Nitrogen 18 mg/dL (9-23); Carbon Dioxide 27 mmol/L (20-31); Chloride 104 mmol/L (98-107); Potassium 4.6 mmol/L (3.5-5.1); Sodium 139 mmol/L (136-145); Total Protein 7.4 g/dL (5.7-8.2)
[2025-03-12 19:19] LABS: Calcium 10.5 mg/dL (8.7-10.4); Glucose 119 mg/dL (74-106)
[2025-03-12 19:25] LABS: Urine Bacteria FEW /hpf (None Seen); Urine Blood Negative /uL (Negative); Urine Clarity Clear (Clear); Urine Color Colorless (Yellow); Urine Protein, UAD Negative (Negative); Urine Specific Gravity 1.003 (1.001-1.035); Urine Squamous Epithelial Cell FEW /hpf (<5); Urine Urobilinogen Normal (Negative); Urine WBC < 1 /HPF (0-5); Urine pH 5.5 (5.0-9.0)
[2025-03-12 20:00] VITALS: TEMP 99
[2025-03-12 21:58] VITALS: PULSE 91; RESP 20; O2SAT 98
[2025-03-12 22:01] VITALS: BP 130/72; PULSE 91; RESP 20; O2SAT 95
== END 2025-03-12 22:02 | disposition home or self-care (01) ==
LOC: ER 17:48
DX: S06.0XAA Concussion with loss of consciousness status unknown, initial encounter (principal); S09.8XXA Other specified injuries of head, initial encounter; E11.9 Type 2 diabetes mellitus without complications; E78.5 Hyperlipidemia, unspecified; G89.29 Other chronic pain; I10 Essential (primary) hypertension; J45.909 Unspecified asthma, uncomplicated; Z90.710 Acquired absence of both cervix and uterus; Z90.49 Acquired absence of other specified parts of digestive tract; Z79.899 Other long term (current) drug therapy; W19.XXXA Unspecified fall, initial encounter; Y93.89 Activity, other specified; Y92.89 Other specified places as the place of occurrence of the external cause; Y99.8 Other external cause status
CPT/HCPCS: 36415; 70450; 80053; 81001; 84484; 85025

== ENCOUNTER → 2025-03-23 | Outpatient (CLI) | payer MEDICAID ==
[2025-03-23 07:33] LABS: Basophils # (auto) 0 10 ^3/uL (0-0.2); Basophils % (auto) 0.6 % (0.0-2.0); Eosinophils # (auto) 0.1 10 ^3/uL (0-0.8); Eosinophils % (auto) 1.4 % (0.0-7.0); Hematocrit 37.9 % (36.0-46.0); Hemoglobin 12.4 g/dL (12.2-16.2); Lymphocytes # (auto) 1.5 10 ^3/uL (0.4-5.4); Lymphocytes % (auto) 23.7 % (10.0-50.0); Mean Corpuscular Hemoglobin 27.7 pg (28.0-32.0); Mean Corpuscular Hgb Conc. 32.8 g/dL (32.0-36.0); Mean Corpuscular Volume 84.5 fL (80.0-100.0); Monocytes # (auto) 0.8 10 ^3/uL (0-1.3); Neutrophils % (auto) 62.3 % (37.0-80.0); Nucleated Red Blood Cells % 0.1 %; Platelet Count (auto) 289 10^3/uL (140-450); Red Blood Cells 4.48 10^6/uL (4.0-5.20); Red Cell Distribution Width 13.3 % (11.8-14.3); White Blood Cell 6.4 10^3/uL (4.4-10.8)
[2025-03-23 07:34] LABS: Urine Blood Negative /uL (Negative); Urine Clarity Clear (Clear); Urine Color Light-Yellow (Yellow); Urine Protein, UAD Negative (Negative); Urine Specific Gravity 1.013 (1.001-1.035); Urine Urobilinogen Normal (Negative); Urine pH 6.5 (5.0-9.0)
[2025-03-23 08:22] LABS: Creatinine, Urine 47.62 mg/dL (30.0-125.0)
[2025-03-23 08:23] LABS: LDL Cholesterol 93 mg/dL (< 100)
[2025-03-23 08:24] LABS: Cholesterol 183 mg/dL (< 200); Triglycerides 91 mg/dL (< 150)
[2025-03-23 08:29] LABS: HDL Cholesterol 74 mg/dL (40-59); Micro Albumin < 3.0 mg/L (<30.0)
== END | disposition home or self-care (01) ==
LOC: LAB 06:46
PROVIDERS: ATTEND Nurse Practitioner Family
DX: I10 Essential (primary) hypertension (principal); E11.9 Type 2 diabetes mellitus without complications; E78.5 Hyperlipidemia, unspecified; E55.9 Vitamin D deficiency, unspecified; E03.9 Hypothyroidism, unspecified
CPT/HCPCS: 36415; 80061; 81003; 82043; 82306; 82570; 83036; 84439; 85025

== ENCOUNTER 2025-06-07 09:00 | Outpatient (CLI) | payer MEDICAID ==
[2025-06-07 09:37] LABS: Hematocrit 40.8 % (36.0-46.0); Hemoglobin 13.4 g/dL (12.2-16.2); Mean Corpuscular Hemoglobin 27.9 pg (28.0-32.0); Mean Corpuscular Volume 85.0 fL (80.0-100.0); Nucleated Red Blood Cells % 0.1 %
[2025-06-07 09:43] LABS: Urine Protein, UAD Negative (Negative)
[2025-06-07 09:53] LABS: Alanine Aminotransferase 15 U/L (7-40); Alkaline Phosphatase 63 U/L (46-116); Anion Gap 7 (5-15); BUN/Creatinine Ratio 15.4 (10.0-20.0); Bilirubin, Total 0.4 mg/dL (0.2-1.0); Blood Urea Nitrogen 14 mg/dL (9-23); Calcium 10.1 mg/dL (8.7-10.4); Carbon Dioxide 28 mmol/L (20-31); Chloride 99 mmol/L (98-107); Cholesterol 157 mg/dL (< 200); Potassium 4.5 mmol/L (3.5-5.1); Total Protein 7.8 g/dL (5.7-8.2); Triglycerides 70 mg/dL (< 150)
[2025-06-07 09:54] LABS: Albumin 4.9 g/dL (3.2-4.8); Glucose 119 mg/dL (74-106); HDL Cholesterol 76 mg/dL (40-59); Microalb/Creat Ratio, Urine < 6.00; Sodium 134 mmol/L (136-145)
[2025-06-08 08:08] LABS: Immunoglobulin A 338 mg/dL (64-422)
== END 2025-06-07 17:00 | disposition home or self-care (01) ==
LOC: LAB 09:00
PROVIDERS: ATTEND Nurse Practitioner Family
DX: E11.9 Type 2 diabetes mellitus without complications (principal); N39.0 Urinary tract infection, site not specified; E78.5 Hyperlipidemia, unspecified; E03.9 Hypothyroidism, unspecified; E55.9 Vitamin D deficiency, unspecified; K21.9 Gastro-esophageal reflux disease without esophagitis; R10.9 Unspecified abdominal pain
CPT/HCPCS: 36415; 80053; 80061; 81001; 82043; 82306; 82570; 82784; 83036; 83516; 84439; 84443; 85025; 86003; 86255

== ENCOUNTER → 2025-06-27 | Outpatient (CLI) | payer MEDICAID ==
[~2025-06-27] MED LIST changes: +STERILE WATER 10 ML ONE
--- NOTE | 2025-06-27 11:47 | DVH ---
CLINICAL INFORMATION: 79 years old, Female; UNSPECIFIED CHRONIC GASTRITIS WO BLEEDING. TECHNIQUE: 6.3 mCi of Choletec were administered intravenously. Images of the upper abdomen were ob tained at 1 minute intervals up to a total time of 60 minutes. Subsequently, 1.3 mcg Kinevac was admi nistered intravenously, as per protocol, and repeat dynamic anterior regional images of the liver wer e obtained over an additional 30 minutes. A region of interest was drawn around the gallbladder, from which a gallbladder ejection fraction was obtained. Time/activity profile curves were generated. COMPARISON: US GALLBLADDER on DOS: 08/15/23 FINDINGS: There is prompt gallbladder visualization. There is prompt excretion of activity from the biliary ductal system into the small bowel. There is no evidence of acute cholecystitis. The gallbladder ejection fraction is calculated to be 4%. IMPRESSION: 1. No scintigraphic evidence of acute cholecystitis. 2. 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
== END | disposition home or self-care (01) ==
LOC: XYW 06:42
PROVIDERS: ATTEND Internal Medicine Gastroenterology
DX: K80.20 Calculus of gallbladder without cholecystitis without obstruction (principal); K29.50 Unspecified chronic gastritis without bleeding
CPT/HCPCS: 78226; A9537

== ENCOUNTER 2025-07-11 09:02 | Outpatient (CLI) | payer MEDICAID ==
[~2025-07-11 09:02] MED LIST changes: -STERILE WATER 10 ML ONE
[2025-07-11 10:34] LABS: Urine Protein, UAD Negative (Negative)
== END 2025-07-11 17:00 | disposition home or self-care (01) ==
LOC: LAB 09:02
PROVIDERS: ATTEND Nurse Practitioner Family
DX: N39.0 Urinary tract infection, site not specified (principal)
CPT/HCPCS: 81003; 87086

== ENCOUNTER 2025-07-31 08:45 | Outpatient (CLI) | payer MEDICAID ==
[~2025-07-31] VITALS: Ht 154.9 cm; Wt 65.3 kg
[2025-07-31] MEDS: REGADENOSON 0.4 MG/5 ML SYRG IV ONE (11:35)
[2025-07-31] MEDS ORDERED: REGADENOSON 0.4 MG/5 ML SYRG IV ONE (11:36)
--- NOTE | 2025-08-06 09:29 | DVHSR ---
APPROVED REPORT Exam: Nuclear Stress Test Indication: Pre-Operative CV evaluation BMI: 0 Stress Test Details Stress Test: Pharmacologic stress testing performed using 0.4 mg of regadenoson per 5 mL given IV ov er 10 seconds. HR Resting HR: 77 bpmMax Heart Rate (APMHR): 141.119058 bpm Max HR Achieved: 98 bpmTarget HR (85% APMHR): 119.671143 bpm % of APMHR: 69.50 Recovery HR: 91 bpm BP Resting BP: 143/73 mmHg Recovery BP: 137/60 mmHg ECG Resting ECG: Sinus Rhythm Nurse Comments Recieved pt. from [facility]. A/Ox4 on RA. Connected to desk monitor, VS stable. PIV flushes well. Re viewed POC. Pt. verbalized understanding of procedure including risks and side effects, agrees for st ress testing. Lexiscan stress test performed per protocol. [facility] tech administered Cardiolite. Pt. tolerated well . Pt. stable, no change on exam. VS returned to baseline. Transferred to [facility] via wheelchair w/ te ch. Stress ECG Conclusion lvef 70% normal perfusion scan no severe ischemia NM EXAM: Myocardial Perfusion REST/STRESS Imaging Protocol: Rest Tc-99m/Stress Tc-99m 1 day Resting Data Rest SPECT myocardial perfusion imaging was performed in supine position 60 minutes following the int ravenous injection of 11.0 mCi of Tc-99m Sestamibi. Time of rest injection: 09:28 Date: 07/31/2025 Time of rest imagin:28 Date: 07/31/2025 Administration Route: IV Administration Site: Right Hand Pharmacologic Stress Pharmacologic stress test was performed by injecting Regadenoson 0.4 mg IV push followed by the intra venous injection of 31.4 mCi of Tc-99m Sestamibi. Time of stress injection: 11:30 Date: 07/31/2025 Time of stress imagin:30 Date: 07/31/2025 Administration Route: IV Administration Site: Right Hand Gated Stress SPECT was performed 60 minutes after stress injection. The images were gated to evaluate regional wall motion and calculate left ventricular ejection fracti on. Stress only was performed in the Supine position. Nuclear Conclusion Nuclear Findings: negative for ischemia lvef 70% normal perfusion scan no severe ischemia
== END 2025-07-31 17:00 | disposition home or self-care (01) ==
LOC: XYW 08:45
PROVIDERS: ATTEND Internal Medicine
DX: Z01.810 Encounter for preprocedural cardiovascular examination (principal); K80.20 Calculus of gallbladder without cholecystitis without obstruction
CPT/HCPCS: 78452; 93017; A9500; J2785

== ENCOUNTER 2025-08-20 08:58 | Outpatient (CLI) | payer MEDICAID ==
[2025-08-20 09:32] LABS: Hematocrit 38.4 % (36.0-46.0); Hemoglobin 12.3 g/dL (12.2-16.2); Mean Corpuscular Hemoglobin 27.6 pg (28.0-32.0); Mean Corpuscular Volume 86.0 fL (80.0-100.0); Nucleated Red Blood Cells % 0.0 %
[2025-08-20 09:50] LABS: Alanine Aminotransferase 12 U/L (7-40); Albumin 4.3 g/dL (3.2-4.8); Alkaline Phosphatase 60 U/L (46-116); Anion Gap 7 (5-15); BUN/Creatinine Ratio 17.1 (10.0-20.0); Blood Urea Nitrogen 13 mg/dL (9-23); Calcium 9.7 mg/dL (8.7-10.4); Carbon Dioxide 30 mmol/L (20-31); Chloride 101 mmol/L (98-107); Potassium 4.7 mmol/L (3.5-5.1); Sodium 138 mmol/L (136-145); Total Protein 7.6 g/dL (5.7-8.2); Triglycerides 61 mg/dL (< 150)
[2025-08-20 09:51] LABS: Bilirubin, Total 0.5 mg/dL (0.2-1.0); Cholesterol 174 mg/dL (< 200)
[2025-08-20 09:56] LABS: Glucose 119 mg/dL (74-106); HDL Cholesterol 89 mg/dL (40-59)
[2025-08-20 10:30] LABS: Urine Protein, UAD Negative (Negative)
== END 2025-08-20 17:00 | disposition home or self-care (01) ==
LOC: LAB 08:58
PROVIDERS: ATTEND Nurse Practitioner Family
DX: E11.9 Type 2 diabetes mellitus without complications (principal); E78.5 Hyperlipidemia, unspecified; E03.9 Hypothyroidism, unspecified; E55.9 Vitamin D deficiency, unspecified
CPT/HCPCS: 36415; 80053; 80061; 81001; 82306; 83036; 84439; 84443; 85025

== ENCOUNTER 2025-09-11 07:58 | Outpatient (CLI) | payer MEDICAID ==
[2025-09-11 08:19] LABS: Hematocrit 39.1 % (36.0-46.0); Hemoglobin 12.8 g/dL (12.2-16.2); Mean Corpuscular Hemoglobin 27.9 pg (28.0-32.0); Mean Corpuscular Volume 85.6 fL (80.0-100.0); Nucleated Red Blood Cells % 0.0 %
[2025-09-11 08:34] LABS: Urine Protein, UAD Negative (Negative)
[2025-09-11 08:40] LABS: Alanine Aminotransferase 14 U/L (7-40); Albumin 4.4 g/dL (3.2-4.8); Alkaline Phosphatase 68 U/L (46-116); Anion Gap 6 (5-15); BUN/Creatinine Ratio 18.1 (10.0-20.0); Bilirubin, Total 0.4 mg/dL (0.2-1.0); Blood Urea Nitrogen 15 mg/dL (9-23); Calcium 10.1 mg/dL (8.7-10.4); Chloride 103 mmol/L (98-107); Cholesterol 176 mg/dL (< 200); Sodium 141 mmol/L (136-145); Total Protein 7.7 g/dL (5.7-8.2); Triglycerides 59 mg/dL (< 150)
[2025-09-11 08:43] LABS: Carbon Dioxide 32 mmol/L (20-31); Glucose 113 mg/dL (74-106); HDL Cholesterol 89 mg/dL (40-59); Potassium 5.4 mmol/L (3.5-5.1)
== END 2025-09-11 17:00 | disposition home or self-care (01) ==
LOC: LAB 07:58
PROVIDERS: ATTEND Nurse Practitioner Family
DX: E11.9 Type 2 diabetes mellitus without complications (principal); E03.9 Hypothyroidism, unspecified; E78.5 Hyperlipidemia, unspecified; N39.0 Urinary tract infection, site not specified; E55.9 Vitamin D deficiency, unspecified
CPT/HCPCS: 36415; 80053; 80061; 81003; 82306; 83036; 84439; 84443; 85025; 87086

== ENCOUNTER 2025-09-12 13:26 | Outpatient (CLI) | payer MEDICAID | END 2025-09-12 17:00 | disposition home or self-care (01) | LOC: LAB 13:26 | PROVIDERS: ATTEND Nurse Practitioner Family | DX: N39.0 Urinary tract infection, site not specified (principal); R30.0 Dysuria | CPT/HCPCS: 87086 ==

== ENCOUNTER → 2025-09-20 | Outpatient (CLI) | payer MEDICAID ==
[2025-09-20 13:38] LABS: Urine Protein, UAD Negative (Negative)
== END | disposition home or self-care (01) ==
LOC: LAB 13:19
PROVIDERS: ATTEND Nurse Practitioner Family
DX: N39.0 Urinary tract infection, site not specified (principal); R30.0 Dysuria
CPT/HCPCS: 81001; 87086